=== PATIENT | female | born 1960 | race African-American/Black ===

== ENCOUNTER 2020-11-23 12:52 | Emergency (ER) | payer OTHER, SELFPAY ==
[2020-11-23] VITALS (8 sets, daily range): BP systolic 125–154; BP diastolic 67–86; PULSE 85–96; RESP 14–18; TEMP 36.9; O2SAT 97–100
--- NOTE | ~2020-11-23 | CT_ITS ---
EXAMINATION: CTA chest PE protocol DATE: 11/23/2020 17:18 INDICATION: Cough and shortness of breath. TECHNIQUE: Computed tomography angiography (CTA) of the chest was performed with 100 mL Omnipaque-350 intravenous contrast timed to evaluate the pulmonary arteries. Coronal maximum intensity projection 3D-reconstructions were created by the technologist. Automated exposure control and iterative reconst ruction technique were employed. The dose-length product was 141.19 mGy-cm. COMPARISON: Chest 2 views 11/23/2020 FINDINGS: There is moderate emphysema. There is mild atelectasis bilaterally. No pleural effusion. Th e heart size is normal. No pericardial effusion. There is no pulmonary embolus. Calcified left hilar lymph nodes are consistent with old granulomatous disease. The spine demonstrates mild spondylosis. IMPRESSION: 1. No pulmonary embolus. 2. Moderate emphysema. Reviewed, dictated and finalized at location A.
--- NOTE | ~2020-11-23 | XR_ITS ---
EXAMINATION: XR chest 2V DATE: 11/23/2020 13:16 INDICATION: Shortness of breath and wheezing TECHNIQUE: AP and lateral views of the chest were obtained. COMPARISON: None FINDINGS: The lungs are clear with no focal airspace opacities, pulmonary edema, pleural effusion or pneumothor ax. The cardiomediastinal silhouette is normal. Mild thoracic spondylosis and minimal to mild anterio r wedging of a few mid thoracic vertebral bodies. IMPRESSION: 1. No acute cardiopulmonary disease. Reviewed, dictated and finalized at location A.
--- NOTE | 2020-11-23 13:02 | ECG_ITS ---
Measurements Intervals [place] Rate: 87 P: 91 PA: 143 QRS: 87 QRSD: 89 T: 90 QT: 373 QTc: 449 Interpretive Statements SINUS RHYTHM MINIMAL Q WAVES- INF/LAT LEADS BORDERLINE T WAVE ABNORMALITY- ANT/HIGH LAT LEADS BORDERLINE ECG Electronically Signed On 11-23-2020 13:12:57 CDT by Harsh Olivarez D.O.
--- NOTE | 2020-11-23 14:01 | PC.NURSE ---
Pt no longer in police custody.
[2020-11-23 14:12] LABS: Basophils Percent Auto 0.8 % (0.2-1.2); Eosinophils Absolute Auto 0.1 K/mm3 (0-0.3); Eosinophils Percent Auto 2.4 % (0-4.4); Hematocrit 44.5 % (37.0-47.0); Hemoglobin 13.7 g/dL (12.0-15.0); Immature Granulocyte Absolute 0.02 K/mm3 (0.00-0.031); Immature Granulocyte Percent A 0.5 % (0-0.5); Lymphocytes Absolute Auto 1.59 K/mm3 (0.9-3.2); Lymphocytes Percent Auto 41.7 % (18.3-44.2); Mean Corpuscular HGB Conc 30.8 g/dl (32-36); Mean Corpuscular Hemoglobin 30.7 pg (26-34); Mean Corpuscular Volume 99.8 fl (80-100); Mean Platelet Volume 9.3 fl (7.4-10.4); Monocytes Absolute Auto 0.5 K/mm3 (0.1-0.6); Monocytes Percent Auto 12.3 % (2.6-8.5); Neutrophils Absolute Auto 1.6 K/mm3 (1.3-6.7); Neutrophils Percent Auto 42.3 % (45.5-73.1); Platelet Count Result 213 k/mm3 (150-375); Red Blood Count 4.46 M/mm3 (4.2-5.4); Red Cell Distribution Width 13.1 % (11.5-14.5); White Blood Count 3.8 K/mm3 (4.5-10.0)
[2020-11-23 14:28] LABS: Anion Gap 6 mmol/L (8-16); Blood Urea Nitrogen 10 mg/dL (7-17); Calcium 8.8 mg/dL (8.4-10.2); Carbon Dioxide 28 mmol/L (22-30); Chloride 107 mmol/L (98-107); Estimated CRCL calculation 50 ml/min; Estimated Glomerular Filt Rate > 60; Glucose 111 mg/dL (65-105); Potassium 3.1 mmol/L (3.4-5.0); Sodium 141 mmol/L (137-145)
--- NOTE | 2020-11-23 16:12 | ED.GENADULT ---
HPI - General Adult General Chief complaint: Shortness of Breath/Dyspnea Stated complaint: SOB Time Seen by Provider: 11/23/20 15:00 Source: patient History of Present Illness HPI narrative: Patient is a 60 y/o female complaining of chronic SOB. She states that her SOB is moderate to severe, but it has been going on for many years. She uses inhaler which helps sometimes. She also has some cough and chest pain with cough. She has no fever. Related Data Allergies Allergy/AdvReac Type Severity Reaction Status Date / Time Penicillins Allergy Unknown Verified 11/23/20 13:00 Review of Systems Constitutional: Constitutional: Denies chills, Denies fever(s), Denies headache(s) and Denies weakness Eyes: Eyes: Denies blurry vision ENT: Denies headache(s) and Denies neck pain Cardiovascular: Cardiovascular: Reports chest pain and Reports dyspnea Respiratory: Respiratory: Reports cough and Reports dyspnea Gastrointestinal: Gastrointestinal: Denies abdominal pain, Denies diarrhea, Denies nausea and Denies vomiting Genitourinary: Genitourinary: Denies hematuria and Denies dysuria Musculoskeletal: Musculoskeletal: Denies back pain and Denies neck pain Neurologic: Denies headache(s) and Denies weakness Exam Const: General: no acute distress and well developed Orientation/consciousness: oriented to person, oriented to place, oriented to time and patient oriented x3 HENMT: Head: normocephalic Ears: external ears normal General nose exam: Normal external nose present Eyes: General: appearance normal, both eyes and all related structures Conjunctivae: conjunctivae normal Neck: Neck: normal visual inspection and full ROM Chest: Chest palpation & inspection: normal inspection of the chest and no tenderness Resp: Effort & Inspection: normal respiratory effort Auscultation: clear to auscultation bilaterally Cardio: Rate: regular rate Rhythm: regular rhythm GI: GI Palp: No abdominal tenderness and Yes Soft to palpation Skin: General skin exam: normal color and turgor normal Neuro: General: oriented to person, oriented to place, oriented to time and patient oriented x3 Cognition (Neuro): normal cognition Extrem: General: normal to inspection, full ROM and no pedal edema Psych: Appearance: grossly normal Mental Status: mental status grossly normal Affect: normal affect Course Vital Signs Vital signs: Vital Signs Temperature 36.9 C 11/23/20 12:54 Pulse Rate 96 11/23/20 12:54 Respiratory Rate 18 11/23/20 12:54 Pulse Oximetry 99 11/23/20 12:54 Temperature 36.9 C 11/23/20 12:54 Pulse Rate 88 11/23/20 17:58 Respiratory Rate 16 11/23/20 17:58 Blood Pressure 125/67 11/23/20 17:58 Pulse Oximetry 97 11/23/20 17:58 Medical Decision Making Vital Signs Vital Signs: Vital Signs Temperature 36.9 C 11/23/20 12:54 Pulse Rate 96 11/23/20 12:54 Respiratory Rate 18 11/23/20 12:54 Pulse Oximetry 99 11/23/20 12:54 Temperature 36.9 C 11/23/20 12:54 Pulse Rate 88 11/23/20 17:58 Respiratory Rate 16 11/23/20 17:58 Blood Pressure 125/67 11/23/20 17:58 Pulse Oximetry 97 11/23/20 17:58 Lab Data Result diagrams: 11/23/20 14:06 11/23/20 14:06 Labs: Lab Results 11/23/20 11/23/20 11/23/20 Range/Units 14:06 14:06 16:13 WBC 3.8 L (4.5-10.0) K/mm3 RBC 4.46 (4.2-5.4) M/mm3 Hgb 13.7 (12.0-15.0) g/dL Hct 44.5 (37.0-47.0) % MCV 99.8 (80-100) fl MCH 30.7 (26-34) pg MCHC 30.8 L (32-36) g/dl RDW 13.1 (11.5-14.5) % Plt Count 213 (150-375) k/mm3 MPV 9.3 (7.4-10.4) fl Immature Gran % (Auto) 0.5 (0-0.5) % Neut % (Auto) 42.3 L (45.5-73.1) % Lymph % (Auto) 41.7 (18.3-44.2) % [place] % (Auto) 12.3 H (2.6-8.5) % Eos % (Auto) 2.4 (0-4.4) % Baso % (Auto) 0.8 (0.2-1.2) % Lymph # (Auto) 1.59 (0.9-3.2) K/mm3 [place] # (Auto) 0.5 (0.1-0.6) K/mm3 Eos # (Auto) 0.1
[2020-11-23] MEDS: POTASSIUM CHLORIDE 20 MEQ TABLET PO (16:15)
[2020-11-23 16:31] LABS: D Dimer 0.99 ug/mL (<0.48)
--- NOTE | 2020-11-23 16:54 | PC.NURSE ---
Pt screaming from room regarding monitor beeping due to pulling off monitors. Pt educated on use of call light. Pt easily agitated and yelling at staff. Pt repeatedly threatening to leave.
--- NOTE | 2020-11-23 17:00 | PC.NURSE ---
This Rn into [facility] where pt has taken off all monitor equipment and is on the phone. Informed pt that she is here for shortness of breath and needs to get back into bed, Pt states yelling at this RN telling me that she needs to call her nephew. I informed pt that I had already called Royce and he stated to call when she was discharged. Pt walked back into room and and is still yelling at this RN and states what do you think i am doing? Are you blind I am getting into bed dont talk to me like a child . this Rn informed pt that she doesn't need to talk to me like a child. As i am putting pt back on monitor pt grabs this RN arm. I informed pt do not touch me pt states well then fuck you, dont touch me . Pt turned so I could not put blood pressure cuff back on arm. Charge nurse made aware of this.
--- NOTE | 2020-11-23 17:10 | PC.NURSE ---
Pt to CT.
[2020-11-23 17:18] LABS: NT Pro B Type Natriuretic Pept 133 pg/mL (5-100); Troponin I < 0.012 ng/mL (0.000-0.034)
--- NOTE | 2020-11-23 17:39 | PC.NURSE ---
All monitors removed per pt.
--- NOTE | 2020-11-23 17:49 | PC.NURSE ---
Dr. Bowman at bedside to discuss results with pt.
== END 2020-11-23 18:04 | disposition home or self-care (01) ==
PROVIDERS: Emergency Provider Emergency Medicine; PCP Internal Medicine
DX: J44.9 Chronic obstructive pulmonary disease, unspecified (principal); R94.31 Abnormal electrocardiogram [ECG] [EKG]
CPT/HCPCS: 36415; 71046; 71275; 80048; 83880; 84484; 85025; 85380; 93005; 99284; A9270; Q9967

== ENCOUNTER 2022-01-03 18:59 | Emergency (ER) | payer OTHER, SELFPAY ==
[2022-01-03 19:04] VITALS: BP 163/91; PULSE 57; RESP 16; TEMP 36.6; O2SAT 97
--- NOTE | 2022-01-04 03:14 | PC.NURSE ---
pt name called x 2 at this time with no response
== END 2022-01-04 03:14 | disposition left against medical advice (07) ==
LOC: ANHED 01-04 03:58
DX: R06.02 Shortness of breath (principal)
CPT/HCPCS: 99199